=== PATIENT | male | born 1965 | race Caucasian/White ===

== ENCOUNTER → 2017-04-16 | Emergency (ER) | payer OTHER ==
[~2017-04-16] VITALS: Ht 180.3 cm; Wt 98.2 kg
[~2017-04-16] MED LIST: MOTRIN800 MG PO; PREDNISONE20 MG PO; ZITHROMAX Z-PA250 MG PO
[2017-04-16 23:42] VITALS: BP 129/77
== END | disposition home or self-care (01) ==
LOC: EME 22:18
DX: J45.909 Unspecified asthma, uncomplicated (principal)
CPT/HCPCS: 71020; 94640; 99281; 99284; J7512